=== PATIENT | male | born 1970 | race Caucasian/White ===

== ENCOUNTER 2022-11-29 04:37 | Day surgery (SDC) | payer BC ==
[2022-11-28 13:21] VITALS: BMI 33.3
[2022-11-29 10:57] VITALS: TEMP 97.1
[2022-11-29 11:31] VITALS: RESP 15
[2022-11-29 11:34] VITALS: BP 107/73; PULSE 76
== END 2022-11-29 11:39 | disposition home or self-care (01) ==
LOC: JASU-ENDO 04:37
PROVIDERS: ATTEND Internal Medicine Gastroenterology
PROC: 0DBL8ZX Excision of Transverse Colon, Via Natural or Artificial Opening Endoscopic, Diagnostic (ICD-10-PCS; 2022-11-29)
PROC: 0DBM8ZX Excision of Descending Colon, Via Natural or Artificial Opening Endoscopic, Diagnostic (ICD-10-PCS; 2022-11-29)
PROC: 0DBH8ZX Excision of Cecum, Via Natural or Artificial Opening Endoscopic, Diagnostic (ICD-10-PCS; 2022-11-29)
PROC: 0DBK8ZX Excision of Ascending Colon, Via Natural or Artificial Opening Endoscopic, Diagnostic (ICD-10-PCS; principal; 2022-11-29 09:00)
DX: Z12.11 Encounter for screening for malignant neoplasm of colon (principal); D12.4 Benign neoplasm of descending colon; D12.3 Benign neoplasm of transverse colon; D12.0 Benign neoplasm of cecum; D12.2 Benign neoplasm of ascending colon
CPT/HCPCS: 82962; 88305-TC

== ENCOUNTER 2024-12-03 06:24 | Day surgery (SDC) | payer BC ==
[2024-11-25 10:51] VITALS: BMI 34.0
[2024-12-03 08:28] VITALS: TEMP 97.6
[2024-12-03 09:03] VITALS: BP 113/70; PULSE 79; RESP 15
== END 2024-12-03 09:35 | disposition home or self-care (01) ==
LOC: JASU-ENDO 06:24
PROVIDERS: ATTEND Internal Medicine Gastroenterology
PROC: 0DBL8ZX Excision of Transverse Colon, Via Natural or Artificial Opening Endoscopic, Diagnostic (ICD-10-PCS; 2024-12-03)
PROC: 0DBN8ZX Excision of Sigmoid Colon, Via Natural or Artificial Opening Endoscopic, Diagnostic (ICD-10-PCS; 2024-12-03)
PROC: 0DBK8ZX Excision of Ascending Colon, Via Natural or Artificial Opening Endoscopic, Diagnostic (ICD-10-PCS; principal; 2024-12-03 07:30)
DX: Z12.11 Encounter for screening for malignant neoplasm of colon (principal); D12.4 Benign neoplasm of descending colon; D12.3 Benign neoplasm of transverse colon; D12.5 Benign neoplasm of sigmoid colon; Z86.0100 Personal history of colon polyps, unspecified
CPT/HCPCS: 82962; 88305-TC